=== PATIENT | male | born 1985 | race Caucasian/White ===

== ENCOUNTER 2016-08-09 20:36 | Emergency (ER) | payer BC ==
[~2016-08-09 20:36] MED LIST: DILANTIN PO; KEPPRA1000 MG PO; KEPPRA500 MG PO; LORTAB 10-3251 EACH PO
== END 2016-08-09 21:23 | disposition home or self-care (01) ==
LOC: SED 20:36
DX: T15.11XA Foreign body in conjunctival sac, right eye, initial encounter (principal); Z23 Encounter for immunization; X58.XXXA Exposure to other specified factors, initial encounter
CPT/HCPCS: 90471; 90715; 99283

== ENCOUNTER 2016-08-16 22:39 | Emergency (ER) | payer BC | END 2016-08-16 23:12 | disposition home or self-care (01) | LOC: SED 22:39 | DX: T15.02XA Foreign body in cornea, left eye, initial encounter (principal); G43.909 Migraine, unspecified, not intractable, without status migrainosus; X58.XXXA Exposure to other specified factors, initial encounter; Y92.89 Other specified places as the place of occurrence of the external cause | CPT/HCPCS: 99283 ==